=== PATIENT | female | born 1955 | race Caucasian/White ===

== ENCOUNTER 2018-01-07 11:52 | Outpatient (CLI) | payer OTHER ==
[~2018-01-07 11:52] MED LIST: ASPI-1 PO; HYDR-569 PO; LANS15CA10 PO; MULT1TAB74 PO; ROSU20TA PO; WALKERFR; WHEE1EAC12 MC
[2018-01-07 12:00] VITALS: BP 127/67
== END 2018-01-07 12:49 | disposition home or self-care (01) ==
LOC: ORTHO 11:52
PROVIDERS: ATTEND Nurse Practitioner Family
DX: S82.202D Unspecified fracture of shaft of left tibia, subsequent encounter for closed fracture with routine healing (principal); S82.402D Unspecified fracture of shaft of left fibula, subsequent encounter for closed fracture with routine healing; E78.00 Pure hypercholesterolemia, unspecified; Z88.8 Allergy status to other drugs, medicaments and biological substances; X58.XXXD Exposure to other specified factors, subsequent encounter
CPT/HCPCS: 73590; 99213